=== PATIENT | male | born 1995 | race African-American/Black ===

== ENCOUNTER 2021-04-03 07:15 | Emergency (ER) | payer BC, MEDICAID ==
[~2021-04-03] VITALS: Ht 172.7 cm; Wt 81.8 kg
[2021-04-03 07:26] VITALS: BP 138/64
[2021-04-03 11:53] LABS: BASOPHILS % (AUTO) 1.1 % (0-1); EOSINOPHILS # (AUTO) 0.1 X10'3 (0-0.9); EOSINOPHILS % (AUTO) 2.2 % (0-6); HEMATOCRIT 40.5 % (42.0-52.0); HEMOGLOBIN 13.5 g/dl (14.0-17.9); LYMPHOCYTES # (AUTO) 0.9 X10'3 (1.1-4.8); LYMPHOCYTES % (AUTO) 23.9 % (21-51); MEAN CORPUSCULAR HEMOGLOBIN 27.9 PG (27.0-31.0); MEAN CORPUSCULAR HGB CONC 33.4 g/dL (33.0-36.5); MEAN CORPUSCULAR VOLUME 83.5 FL (78-98); MEAN PLATELET VOLUME 8.2 FL (7.4-10.4); MONOCYTES # (AUTO) 0.8 X10'3 (0-0.9); NEUTROPHILS # (AUTO) 1.9 X10'3 (1.8-7.7); NEUTROPHILS % (AUTO) 51.8 % (42-75); PLATELET COUNT 216 X10'3 (140-440); RED BLOOD COUNT 4.85 X10'6 (4.70-6.10); RED CELL DISTRIBUTION WIDTH 13.8 % (11.5-14.5); WHITE BLOOD COUNT 3.7 X10'3 (4.5-11.0)
[2021-04-03 12:16] LABS: ALANINE AMINOTRANSFERASE 26 U/L (12-78); ALBUMIN 4.1 G/DL (3.4-5.0); ALBUMIN/GLOBULIN RATIO 1.3 (1.1-1.5); ALKALINE PHOSPHATASE 61 IU/L (46-116); ANION GAP 9 (8-16); ASPARTATE AMINO TRANSFERASE 20 U/L (10-37); BILIRUBIN,TOTAL 0.2 MG/DL (0.1-1.0); BLOOD UREA NITROGEN 10 MG/DL (7-18); BUN/CREATININE RATIO 8.9 (5.4-32.0); CALCIUM 8.6 MG/DL (8.5-10.1); CHLORIDE 104 MMOL/L (99-107); CREATININE 1.12 MG/DL (0.60-1.10); GLUCOSE 94 MG/DL (70-104); MAGNESIUM 2.1 MG/DL (1.5-2.4); POTASSIUM 4.1 MMOL/L (3.5-5.1); SODIUM 142 MMOL/L (135-145); TOTAL CARBON DIOXIDE 28.8 MMOL/L (24-32); TOTAL PROTEIN 7.3 G/DL (6.4-8.2); eGFR > 90 ML/MIN
[2021-04-03 13:27] LABS: TOTAL CELLS COUNTED 100
[2021-04-03 13:28] LABS: GIANT PLATELET FEW; LARGE PLATELETS FEW; PLATELET ESTIMATE NORMAL
== END 2021-04-03 14:05 | disposition home or self-care (01) ==
LOC: ER 07:17
DX: R00.2 Palpitations (principal); R94.31 Abnormal electrocardiogram [ECG] [EKG]; Z88.1 Allergy status to other antibiotic agents
CPT/HCPCS: 36415; 71045; 80053; 83735; 84443; 84484; 85007; 85025; 93005; 99285